=== PATIENT | female | born 1960 | race Caucasian/White ===

== ENCOUNTER 2020-01-29 05:38 | Emergency (ER) | payer MEDICARE, MEDICAID ==
[~2020-01-29] VITALS: Ht 154.9 cm; Wt 80.2 kg
--- NOTE | 2020-01-29 05:54 | PHYS DOC ---
Past History Past Medical History: Anxiety, Bipolar, Depression Past Medical History Parkinson's disorder (SATNAM FRANCO MD) Smoking: Cigarettes (SATNAM FRANCO MD) General Adult HPI: HPI: "..No one loves me... No one will take care of me... I having bad anxiety..My .. he tired kill me.. He said I was a fucking heart less bitch..my family hates... they want to kill me.. the Police... stopped me... they want to arrest... me.. No give a fucking shit about me... Fucking..every one is out to get me.. to kill me.. " I fucking scared...." " I need some help...". " Those fucking police..."... " God help me..".. " God hates me...".. " I need help..." " I need my house in order..." " I ... can't live ...like this..." " My family ..." going to kill me.. " Madhu.." " I can;' t take care of myself.. " I killed my .... " No body will help me..." ".. I was driving crazy...but I am not crazy.. "...'" Fucking police..." Patient is a 59 year old female who presents with above complaints multiple emotional complaints. Pt. reportedly stopped by police for erratic driving. Pt. very agitated and yelling. Police referred the pt. to ED for medical / psych. eval. patient is very poor historian. Patient reportedly has history of Parkinson's disorder, chronic pain, DVTs, and tobacco use. Patient currently denies illicit drug use. (SATNAM FRANCO MD) Review of Systems: Review of Systems: Constitutional: Denies fever or chills Eyes: Denies change in visual acuity HENT: Denies nasal congestion or sore throat Respiratory: Denies cough or shortness of breath Cardiovascular: Denies chest pain or edema GI: Denies abdominal pain, nausea, vomiting, bloody stools or diarrhea : Denies dysuria Musculoskeletal: Denies back pain or joint pain Integument: Denies rash Neurologic: Denies headache, focal weakness or sensory changes Endocrine: Denies polyuria or polydipsia Lymphatic: Denies swollen glands Psychiatric: Complaints of depression and anxiety (SATNAM FRANCO MD) Heart Score: HEART Score for Chest Pain: HEART Score for Chest Pain Response (Comments) Value History Slighlty/Non-Suspicious 0 ECG Normal 0 Age >45 - < 65 1 Risk Factors 1 or 2 Risk Factors 1 Troponin < Normal Limit 0 Total 2 Risk Factors: Risk Factors: DM, Current or recent (<one month) smoker, HTN, HLP, family hist ory of CAD, obesity. Risk Scores: Score 0 - 3: 2.5% MACE over next 6 weeks - Discharge Home Score 4 - 6: 20.3% MACE over next 6 weeks - Admit for Clinical Observation Score 7 - 10: 72.7% MACE over next 6 weeks - Early Invasive Strategies (SATNAM FRANCO MD) Family History: Family History: Not currently available in her agitated state (SATNAM FRANCO MD) Current Medications: Current Meds: See Nursing for home meds (STANAM FRANCO MD) Allergies: Allergies: Unable to determine at this time. (SATNAM FRANCO MD) Physical Exam: PE: Constitutional: in acute emotional distress, [] HENT: Normocephalic, atraumatic, bilateral external ears normal, oropharynx moist, no oral exudates, nose normal. [] Eyes: PERRLA, EOMI, conjunctiva normal, no discharge. [] Neck: Normal range of motion, no tenderness, supple, no stridor. [] Cardiovascular:Heart rate regular rhythm, no murmur [] Lungs & Thorax: Bilateral breath sounds equal at apexes, with scattered wheezes on auscultation [] Abdomen: Bowel sounds normal, soft, no tenderness, no masses, no pulsatile masses. [] Skin: Warm, dry, no erythema, no rash. [] Back: No tenderness, no CVA tenderness. [] Extremities: No tenderness, no cyanosis, no clubbing, ROM intact, no edema. No cording appreciated Neurologic: Alert and oriented to name, moves all ext. on request, has distal sensory, Psychologic: Affect agitated,, judgement appears impaired, mood depressed. (SATNAM FRANCO MD) EKG: EKG: My interpretation EKG shows a sinus rhythm at 85 bpm. No findings of acute morp hology. There is some wavering baseline [] (SATNAM FRANCO MD) Radiology/Procedures: Radiology/Procedures: [] IMAGING REPORT Signed PATIENT: LINNEA DOWNS ACCOUNT: [id number] : 1960 LOCATION: ER AGE: 59 SEX: F EXAM STATUS: REG ER ORD. PHYSICIAN: SATNAM FRANCO MD REASON: dyspnea PROCEDURE: PORTABLE CHEST 1V EXAM: CHEST ONE VIEW. HISTORY: Dyspnea. COMPARISON: None. FINDINGS: A frontal view of the chest is obtained. The inspiration is small with bibasilar atelectasis. There is no pneumothorax or pleural effusion. The heart is not enlarged. IMPRESSION: 1. Small inspiration with bibasilar atelectasis. Electronically signed by: Adry Munson MD (01/29/2020 6:26 AM) [facility] DICTATED AND SIGNED BY: GIUSEPPE MUNSON MD DATE: 01/29/20625 CC: TERESA ESCAMILLA DO; SATNAM FRANCO MD; MACIE CHRISTIAN I DO ~ (SATNAM FRANCO MD) Course & Med Decision Making: Course & Med Decision Making Pertinent Labs and Imaging studies reviewed. (See chart for details) Labs pending at shift change. Endorsed patient to Dr. Escamilla to make disposition. Impression: 1. Mental Status Change 2. Anxiety Disorder 3. Hx Bipolar 4. Acute Psychosis with Paranoid Delusions and Disorientation 5. Hx. of Parkinson Dz See Psych report Ashly Torres [facility] Pt. still awaiting placement involuntary- a 1800 hr.s 01/29/2020 Pt. still awaiting placement involuntary- at shift change 01/30/2020 Pt sleeping since 2000 Hrs. Pt. awaken at 0036. Request to take Parkinson medication. 01-31-2020 Pt. still awaiting placement. [facility] will take pt. at 1000 hrs. tomorrow 02-02-20 Pt. asking for a pain med for her chronic Fibromyalgia pain. 183. Negative COVID. Pt. chart reviewed. No documentation that pt. has become voluntary. [facility] states they will take her as voluntary or in voluntary. Pt. becoming more agitated, complaints of rushing thoughts, insomnia, ..2300. Will repeat dose of Haldol 5 mg and 50 mg Benadryl. 01/31/2020 Pt. Asleep 0300 hrs. Pt. Asleep at 0600 hrs. 02/01/2020- Plan transfer to [facility] at [address] Check out to Dr. Carrera . (SATNAM FRANCO MD) Course & Med Decision Making [facility] in [place] sent out a mental health personal property assessor, who recommended that patient will need inpatient admission. She stated that patient will have a bed at her hospital tomorrow by 10 am. Care of patient was endorsed back to Dr. Yosi Horn at shift change, pending placement. (RAQUEL WORLEY DO) Dragon Disclaimer: Dragon Disclaimer: This electronic medical record was generated, in whole or in part, using a voice recognition dictation system. (SATNAM FRANCO MD) Departure Departure: Disposition: 65 XFER TO PSYCH HOSP/UNIT (awaiting) Condition: STABLE Referrals: MACIE CHRISTIAN DO (PCP) Dragon Disclaimer This chart was dictated in whole or in part using Voice Recognition software in a busy, high-work load, and often noisy Emergency Department environment. It may contain unintended and wholly unrecognized errors or omissions. (SATNAM FRANCO MD) SATNAM FRANCO MD January 29, 2020 05:54 RAQUEL WORLEY DO Jan 31, 2020 17:32
[2020-01-29] MEDS ORDERED: IV RINGERS SOLUTION,LACTATED 1,000 ML IV SCH (06:00)
--- NOTE | 2020-01-29 06:18 | EKG ---
[address] [address] Test Date: 2020-01-29 Test Time: 06:09:26 Pat Name: LINNEA DOWNS Department: Room: Gender: F Patient Insurance Clerk: : 1960 Requested By: SATNAM FRANCO Order Number: [id number] Reading MD: Caden Wharton MD Measurements Intervals Oden Rate: 85 P: 37 [place]: 170 QRS: 9 QRSD: 84 T: 28 QT: 350 QTc: 417 Interpretive Statements SINUS RHYTHM Electronically Signed On 01-31-2020 12:21:04 CDT by Caden Wharton MD
[2020-01-29 06:20] LABS: BARBITURATES NEG (NEG); BENZODIAZEPINES NEG (NEG); CALCIUM 8.9 mg/dL (8.5-10.1); CANNABINOIDS NEG (NEG); COCAINE NEG (NEG); CREATININE 0.6 mg/dL (0.6-1.0); GFR 102.3; METHADONE NEG (NEG); OPIATES NEG (NEG); PHENCYCLIDINE NEG (NEG)
[2020-01-29 06:22] LABS: AMPHETAMINE/METHAMPHETAMINE NEG (NEG)
[2020-01-29 06:23] LABS: BACTERIA,URINE FEW /HPF (0-FEW); BASO # 0.1 x10^3/uL (0.0-0.2); BASO % 1 % (0-3); BILIRUBIN,URINE NEG (NEG); CLARITY,URINE CLEAR; COLOR,URINE STRAW; EOS # 0.1 x10^3/uL (0.0-0.7); EOS % 1 % (0-3); GLUCOSE,URINE NEG (NEG); HEMATOCRIT 43.6 % (36.0-47.0); HEMOGLOBIN 14.3 g/dL (12.0-15.5); LYMPH # 1.5 x10^3/uL (1.0-4.8); LYMPH % 19 % (24-48); MEAN CORPUSCULAR HEMOGLOBIN 28 pg (25-35); MEAN CORPUSCULAR HGB CONC 33 g/dL (31-37); MEAN CORPUSCULAR VOLUME 85 fL (79-100); MONO # 0.6 x10^3/uL (0.0-1.1); MONO % 8 % (0-9); NEUT # 5.5 x10^3uL (1.8-7.7); NEUT % 71 % (31-73); NITRITE,URINE NEG (NEG); PLATELET COUNT 254 x10^3/uL (140-400); RBC,URINE OCC /HPF (0-2); RED BLOOD COUNT 5.12 x10^6/uL (3.50-5.40); RED CELL DISTRIBUTION WIDTH 14.2 % (11.5-14.5); UROBILINOGEN,URINE 0.2 mg/dL (0.2 mg/dL); WBC,URINE OCC /HPF (0-4); WHITE BLOOD COUNT 7.8 x10^3/uL (4.0-11.0)
[2020-01-29 06:24] LABS: SQUAMOUS EPITHELIAL CELL,UR FEW /LPF
--- NOTE | 2020-01-29 06:29 | RAD ---
EXAM: CHEST ONE VIEW. HISTORY: Dyspnea. COMPARISON: None. FINDINGS: A frontal view of the chest is obtained. The inspiration is small with bibasilar atelectasis. There is no pneumothorax or pleural effusion. The heart is not enlarged. IMPRESSION: 1. Small inspiration with bibasilar atelectasis. Electronically signed by: Adry Munson MD (01/29/2020 6:26 AM) [facility]
[2020-01-29] MEDS ORDERED: HALOPERIDOL LACT 5 MG/ML VIAL. IVP ONE (06:30)
[2020-01-29 06:33] LABS: ALBUMIN 3.7 g/dL (3.4-5.0); DIRECT BILIRUBIN 0.1 mg/dL (0.0-0.2); TOTAL BILIRUBIN 0.6 mg/dL (0.2-1.0); TOTAL PROTEIN 7.3 g/dL (6.4-8.2)
[2020-01-29] MEDS ORDERED: HALOPERIDOL LACT 5 MG/ML VIAL. IVP PRN (11:15)
[2020-01-29] MEDS: CARBIDOPA/LEVODOPA 25/100MG TABLET PO SCH ×3 (12:00→23:50)
[2020-01-30] MEDS: CARBIDOPA/LEVODOPA 25/100MG TABLET PO SCH ×4 (01:49→22:05)
[2020-01-31] MEDS: CARBIDOPA/LEVODOPA 25/100MG TABLET PO SCH ×6 (00:33→17:49)
[2020-01-31] MEDS ORDERED: IBUPROFEN 600 MG TABLET. PO ONE (08:30)
[2020-01-31] MEDS ORDERED: HYDROcodon/IBUPROFEN 7.5/200MG 1 TAB TABLET PO ONE (18:00)
[2020-01-31] MEDS ORDERED: LORazepam 1 MG TABLET PO ONE (18:00)
[2020-01-31] MEDS ORDERED: HALOPERIDOL 1 MG TABLET PO ONE (23:15)
[2020-01-31] MEDS ORDERED: diphenhydrAMINE HCL 25 MG CAPSULE PO ONE (23:15)
[2020-02-01] MEDS: CARBIDOPA/LEVODOPA 25/100MG TABLET PO SCH (08:44)
[2020-02-01 08:45] VITALS: BP 135/76
== END 2020-02-01 09:32 ==
LOC: ER 05:38
DX: R41.82 Altered mental status, unspecified (principal); F41.9 Anxiety disorder, unspecified; F31.9 Bipolar disorder, unspecified; Z03.818 Encounter for observation for suspected exposure to other biological agents ruled out; F22 Delusional disorders; G20 Parkinson's disease; G89.29 Other chronic pain; F17.210 Nicotine dependence, cigarettes, uncomplicated; Z86.718 Personal history of other venous thrombosis and embolism
CPT/HCPCS: 36415; 71045; 80048; 80076; 80307; 81001; 82550; 83690; 83735; 83880; 84443; 84484; 85025; 85379; 85610; 85730; 93005; 96361; 96374; 96375; 96376; 99285; C9803; G0480; J1630; J2060; J7120; Q0163; U0003

== ENCOUNTER 2021-05-11 11:37 | Emergency (ER) | payer MEDICARE, MEDICAID ==
[~2021-05-11] VITALS: Ht 152.4 cm; Wt 80.1 kg
[2021-05-11 11:55] VITALS: BP 154/82
--- NOTE | 2021-05-11 12:51 | PHYS DOC ---
Past History Past Medical History: Anxiety, Bipolar, Depression Additional Past Medical Histor: PARKINSONS Past Surgical History: Tonsillectomy, Tubal ligation, Other Additional Past Surgical Histo: KIDNEY STENTS Smoking: Cigarettes Alcohol Use: None General Adult EDM: Chief Complaint: TREMORS HPI: HPI: Patient is a 61-year-old female coming in from her primary care provider's office for tremors. ED received report from primary care that she has a history of Parkinson's but her tremors have been getting worse over the past few days and he is concerned that she might need something like diazepam. Patient follows with Dr. Ramires monthly for her Parkinson's disease. Patient states that she had gone to her primary care provider today due to concerns for an STI after intercourse and now complaining of dysuria. Patient states that at the time she was seeing her PCP she was just about due for her next Sinemet and took it 15 minutes prior to our evaluation. Patient states her symptoms are much better now and that her medicine is starting to kick in. Patient states that she has not had any changes in her dosage but was wanting to see her neurologist because she says it seems like the doses are wearing off too much before its time for the next dose. Denies any other complaints. Otherwise has been well. Review of Systems: Review of Systems: All other systems within normal limits except for as noted in the HPI Allergies: Allergies: Allergies Coded Allergies Type Severity Reaction Last Updated Verified No Known Drug Allergies 01/30/20 No Physical Exam: PE: Constitutional: Well developed, well nourished, no acute distress, non-toxic appearance. [] HENT: Normocephalic, atraumatic, bilateral external ears normal, nose normal. [] Eyes: PERRLA, conjunctiva normal, no discharge. [] Neck: No rigidity, supple, no stridor. [] Cardiovascular: Regular rate and rhythm, brisk cap refill [] Lungs & Thorax: Non labored symmetric respirations, no tachypnea or respiratory distress [] Abdomen: Soft, nondistended. Skin: Warm, dry, no erythema, no rash. [] Back: Unremarkable Extremities: No deformities, range of motion grossly intact, no lower extremity edema [] Neurologic: Alert and oriented X 3, no focal deficits noted. Abnormal muscle movements, slight tremors [] Psychologic: Affect normal, judgement normal, mood normal. [] Current Patient Data: Labs: RUN DATE: 05/11/21 [facility] LAB *LIVE* PAGE 1 RUN TIME: 1321 Specimen Inquiry PATIENT: LINNEA DOWNS ACCT: [id number] LOC: ER U: [id number] AGE/SX: 61/F ROOM: RE05/11/[address]: ELOINA MARINO MD : 1960 BED: DIS: STATUS: REG ER TLOC: SPEC #: [id number] NABEEL: 05/11/21 STATUS: COMP REQ #: [id number] RECD: 05/11/[address]: ELOINA MARINO MD SOURCE: VAGINAL ENTR: 05/11/21-[address] [facility] [address]: LAURA MUÑOZ MD SPDC: ORDERED: WET PREP COMMENTS: Has specimen been collected/obtained? Y Procedure Result WET PREP Final YEAST NONE SEEN TRICHOMONAS NONE SEEN CLUE CELLS NONE SEEN ALTERED CHICHO ALTERED CHICHO PRESENT SUGGESTIVE OF BACTERIAL VAGINOSIS WBCS FEW SQUAMOUS EPS MODERATE END OF REPORT Vital Signs: Vital Signs Date Time Temp Pulse Resp B/P (MAP) Pulse Ox O2 Delivery O2 Flow Rate FiO2 05/11/21 11:55 98.4 71 20 154/82 (106) 96 Room Air EKG: EKG: [] Radiology/Procedures: Radiology/Procedures: [] Heart Score: C/O Chest Pain: No HEART Score for Chest Pain: HEART Score for Chest Pain Response (Comments) Value History Slighlty/Non-Suspicious 0 ECG Normal 0 Age >45 - < 65 1 Risk Factors 1 or 2 Risk Factors 1 Troponin < Normal Limit 0 Total 2 Risk Factors: Risk Factors: DM, Current or recent (<one month) smoker, HTN, HLP, family history of CAD, obesity. Risk Scores: Score 0 - 3: 2.5% MACE over next 6 weeks - Discharge Home Score 4 - 6: 20.3% MACE over next 6 weeks - Admit for Clinical Observation Score 7 - 10: 72.7% MACE over next 6 weeks - Early Invasive Strategies Course & Med Decision Making: Course & Med Decision Making Pertinent Labs and Imaging studies reviewed. (See chart for details) [] Danny Disclaimer: Danny Disclaimer: This electronic medical record was generated, in whole or in part, using a voice recognition dictation system. Departure Departure: Impression: Primary Impression: Parkinsonian tremor Additional Impression: Bacterial vaginosis Disposition: HOME / SELF CARE / HOMELESS Condition: STABLE Referrals: LAURA MUÑOZ MD (PCP) Patient Instructions: Bacterial Vaginosis Scripts Metronidazole (METRONIDAZOLE) 500 Mg Tablet 1 TAB PO BID for antibiotic for 7 Days, #14 TAB 0 Refills Prov: ELOINA MARINO MD 05/11/21 Diazepam (VALIUM) 2 Mg Tablet 2 MG PO TID PRN for TREMORS for 5 Days, #15 TAB Prov: ELOINA MARINO MD 05/11/21 ELOINA MARINO MD May 11, 2021 12:51
[2021-05-11] MEDS ORDERED: diazePAM 2 MG TABLET. PO ONE (13:00)
[2021-05-11 13:11] LABS: BASO # 0.1 x10^3/uL (0.0-0.2); BASO % 1 % (0-3); EOS # 0.1 x10^3/uL (0.0-0.7); EOS % 1 % (0-3); HEMATOCRIT 45.1 % (36.0-47.0); HEMOGLOBIN 14.8 g/dL (12.0-15.5); LYMPH # 1.4 x10^3/uL (1.0-4.8); LYMPH % 20 % (24-48); MEAN CORPUSCULAR HEMOGLOBIN 28 pg (25-35); MEAN CORPUSCULAR HGB CONC 33 g/dL (31-37); MEAN CORPUSCULAR VOLUME 87 fL (79-100); MONO # 0.5 x10^3/uL (0.0-1.1); MONO % 7 % (0-9); NEUT # 5.1 x10^3uL (1.8-7.7); NEUT % 71 % (31-73); PLATELET COUNT 262 x10^3/uL (140-400); RED BLOOD COUNT 5.21 x10^6/uL (3.50-5.40); RED CELL DISTRIBUTION WIDTH 13.7 % (11.5-14.5); WHITE BLOOD COUNT 7.2 x10^3/uL (4.0-11.0)
[2021-05-11 13:18] LABS: CALCIUM 9.3 mg/dL (8.5-10.1); CREATININE 0.6 mg/dL (0.6-1.0); GFR 101.6; POTASSIUM 3.8 mmol/L (3.5-5.1)
[2021-05-11 13:24] LABS: ALBUMIN 3.7 g/dL (3.4-5.0); ALBUMIN/GLOBULIN RATIO 1.1 (1.0-1.7); MAGNESIUM 2.2 mg/dL (1.8-2.4); PHOSPHORUS 3.3 mg/dL (2.6-4.7); TOTAL BILIRUBIN 0.4 mg/dL (0.2-1.0); TOTAL PROTEIN 7.1 g/dL (6.4-8.2)
[2021-05-11 13:25] LABS: BILIRUBIN,URINE NEG (NEG); CLARITY,URINE CLEAR; COLOR,URINE YELLOW; GLUCOSE,URINE NEG (NEG); NITRITE,URINE NEG (NEG); UROBILINOGEN,URINE 0.2 mg/dL (0.2 mg/dL)
[2021-05-11 13:27] LABS: BACTERIA,URINE FEW /HPF (0-FEW); RBC,URINE 0 /HPF (0-2); SQUAMOUS EPITHELIAL CELL,UR FEW /LPF
[2021-05-11] MEDS ORDERED: METR-34 PO (14:22)
[2021-05-11] MEDS ORDERED: DIAZ2TAB PO (14:22)
== END 2021-05-11 14:43 | disposition home or self-care (01) ==
LOC: ER 11:37
DX: G20 Parkinson's disease (principal); N76.0 Acute vaginitis; B96.89 Other specified bacterial agents as the cause of diseases classified elsewhere; F41.9 Anxiety disorder, unspecified; F31.9 Bipolar disorder, unspecified; F17.210 Nicotine dependence, cigarettes, uncomplicated
CPT/HCPCS: 80053; 81001; 83735; 84100; 85025; 87491; 87591; 99283; Q0111

== ENCOUNTER 2021-11-14 10:01 | Emergency (ER) | payer MEDICAID, MEDICARE ==
[~2021-11-14] VITALS: Ht 152.4 cm; Wt 84.8 kg
[~2021-11-14 10:01] MED LIST: DIAZ2TAB PO; METR-34 PO
[2021-11-14] MEDS ORDERED: CARBIDOPA/LEVODOPA 25/100MG TABLET PO ONE (10:15)
[2021-11-14 10:30] VITALS: BP 115/50
--- NOTE | 2021-11-14 10:30 | PHYS DOC ---
Past History Past Medical History: Anxiety, Bipolar, Depression Additional Past Medical Histor: PARKINSONS Past Surgical History: Tonsillectomy, Tubal ligation, Other Additional Past Surgical Histo: KIDNEY STENTS Smoking: Cigarettes Alcohol Use: None General Adult EDM: Chief Complaint: MEDICATION REFILL HPI: HPI: Patient is a 61-year-old female who presents to the emergency department via EMS for medication refill. Patient reports that she takes carbidopa/levodopa 25-100 mg. She is supposed to take 5 tablets a day and states that she has been having to take more than what is ordered because she does not have relief in her tremors unless she takes more medication than prescribed. She reports because she has been taking more than prescribed, she is ran out earlier. Patient was given a 3-month supply on August 21, 2021 and she reports that she "ran out a long time ago". Patient reports that Dr. Apodaca is the physician that prescribes this medication for her and her primary care provider is Dr. Demarco Solitario. Patient also states that sometimes Valium helps with her tremors. Patient reports that she lives at home with her family and her son, daughter and grandchildren take care of her. She reports that when she got out of a place called [facility] in March of last year she was supposed to be set up with home health but has not had home health set up yet. Patient is very demanding and resistant to answering questions. She is cursing at ER staff. Review of Systems: Review of Systems: Review of systems is limited to patient's cooperation with questioning Current Medications: Current Meds: Current Medications Medications (Trade) Dose Ordered Sig/Lory Start Time Stop Time Status Last Admin Dose Admin Carbidopa/Levodopa (Sinemet 25/100) 1 tab 1X ONCE 11/14/21 10:15 11/14/21 10:19 DC Lorazepam (Ativan Inj) 0.5 mg 1X ONCE 11/14/21 10:15 11/14/21 10:19 DC Allergies: Allergies: Allergies Coded Allergies Type Severity Reaction Last Updated Verified No Known Drug Allergies 01/30/20 No Physical Exam: PE: Constitutional: Well developed, well nourished, no acute distress, non-toxic appearance. [] HENT: Normocephalic, atraumatic, bilateral external ears normal, oropharynx mo ist, no oral exudates, nose normal. [] Eyes: PERRL, EOMI, conjunctiva normal, no discharge. [] Neck: Normal range of motion, no stridor Cardiovascular:Heart rate regular rhythm, no murmur [] Lungs & Thorax: Bilateral breath sounds clear to auscultation [] Abdomen: Bowel sounds normal, soft, no tenderness, obese, no masses, no pulsatile masses. [] Skin: Warm, dry, no erythema, no rash. [] Back: Normal range of motion Extremities: No tenderness, no cyanosis, no clubbing, ROM intact, no edema. [] Neurologic: Alert and oriented X 3, normal motor function, normal sensory f unction, no focal deficits noted, bilateral upper extremity tremors. [] Psychologic: Affect normal, judgement normal, mood normal. [] Current Patient Data: Labs: Laboratory Tests Test 11/14/21 10:22 White Blood Count 8.0 x10^3/uL Red Blood Count 5.29 x10^6/uL Hemoglobin 14.8 g/dL Hematocrit 45.5 % Mean Corpuscular Volume 86 fL Mean Corpuscular Hemoglobin 28 pg Mean Corpuscular Hemoglobin Concent 33 g/dL Red Cell Distribution Width 13.0 % Platelet Count 271 x10^3/uL Neutrophils (%) (Auto) 77 % Lymphocytes (%) (Auto) 13 % Monocytes (%) (Auto) 8 % Eosinophils (%) (Auto) 1 % Basophils (%) (Auto) 2 % Neutrophils # (Auto) 6.1 x10^3uL Lymphocytes # (Auto) 1.0 x10^3/uL Monocytes # (Auto) 0.6 x10^3/uL Eosinophils # (Auto) 0.1 x10^3/uL Basophils # (Auto) 0.1 x10^3/uL Sodium Level 141 mmol/L Potassium Level 4.4 mmol/L Chloride Level 106 mmol/L Carbon Dioxide Level 28 mmol/L Anion Gap 7 Blood Urea Nitrogen 13 mg/dL Creatinine 0.7 mg/dL Estimated GFR (Cockcroft-Gault) 85.1 BUN/Creatinine Ratio 19 Glucose Level 110 mg/dL Calcium Level 8.9 mg/dL Total Bilirubin 0.6 mg/dL Aspartate Amino Transf (AST/SGOT) 33 U/L Alanine Aminotransferase (ALT/SGPT) 10 U/L Alkaline Phosphatase 80 U/L Total Protein 7.1 g/dL Albumin 3.5 g/dL Albumin/Globulin Ratio 1.0 Current Medications Medications (Trade) Dose Ordered Sig/Lory Route PRN Reason Start Time Stop Time Status Last Admin Dose Admin Carbidopa/Levodopa (Sinemet 25/100) 1 tab 1X ONCE PO 11/14/21 10:15 11/14/21 10:19 DC 11/14/21 10:41 Lorazepam (Ativan Inj) 0.5 mg 1X ONCE IVP 11/14/21 10:15 11/14/21 10:19 DC 11/14/21 10:23 EKG: EKG: [] Radiology/Procedures: Radiology/Procedures: [] Heart Score: C/O Chest Pain: N/A Risk Factors: Risk Factors: DM, Current or recent (<one month) smoker, HTN, HLP, family history of CAD, obesity. Risk Scores: Score 0 - 3: 2.5% MACE over next 6 weeks - Discharge Home Score 4 - 6: 20.3% MACE over next 6 weeks - Admit for Clinical Observation Score 7 - 10: 72.7% MACE over next 6 weeks - Early Invasive Strategies Course & Med Decision Making: Course & Med Decision Making Pertinent Labs and Imaging studies reviewed. (See chart for details) [] Patient presents to the emergency department today for medication refill. Patient reports that she has been having to take more than prescribed of her carbidopa levodopa medication because the dose that she is given does not help with her tremors. Work-up in the ER consisted of CBC, CMP. Patient was given her dose of carbidopa/levodopa in the emergency department. She reports that when her tremors get bad a dose of Valium helps with the symptoms, there is a shortage of Valium and patient was given lorazepam. Supervising physician involved in evaluation. Patient's lab work was unremarkable. Patient's tremors have improved greatly after Valium. I discussed patient's case with Dr. Apodaca who is her normal neurologist that manages her medications. He reports that he saw her in his office 1 month ago. He advised me to give patient an additional tablet a day and have her follow-up in his office within 1 week. I advised patient of the risks of increasing this medication and the symptoms of dyskinesia that she may experience. I discussed patient's case and findings with her. I offered her admission for custodial placement but she reports that she would like to go home. Vital signs are stable. I discussed with patient all findings and diagnostic testing as well as the need to follow-up with PCP for further evaluation and treatment or return to the ER if any new or worsening symptoms. Strict return precautions were also discussed at length. Patient voiced understanding and agreement with the plan. Patient is hemodynamically stable at the time of disposition. Dragon Disclaimer: Dragon Disclaimer: This electronic medical record was generated, in whole or in part, using a voice recognition dictation system. Departure Departure: Impression: Primary Impression: Encounter for medication adjustment Disposition: HOME / SELF CARE / HOMELESS Condition: GOOD Referrals: DEMARCO SOLITARIO MD (PCP) GABRIELLA APODACA MD Patient Instructions: Parkinson's Disease Additional Instructions: You are seen in the emergency department for medication management. Your blood work was unremarkable. We are going to increase your dose of carbidopa/levodopa. Please use this as directed. Do not take any more than what is prescribed for you. Taking too much of this medication can cause dyskinesia symptoms which are repetitive involuntary movements like blinking, abnormal movements of the jaw/lip/tongue and facial grimacing. I spoke with Dr. Apodaca who would like to see you in his office within a week. Please call his office at discharge to set up a follow-up appointment. Return to the emergency department if you develop any worsening of your tremors, falls, chest pain, shortness of breath, dizziness. Scripts Carbidopa/Levodopa (CARBIDOPA-LEVODOPA 25-100 TAB) 1 Each Tablet 2 EACH PO TID for parkinsons for 7 Days, #42 TAB 0 Refills Prov: ISABEL RANGEL APRN 11/14/21 ISABEL RANGEL APRN Nov 14, 2021 10:30
[2021-11-14 10:39] LABS: BASO # 0.1 x10^3/uL (0.0-0.2); BASO % 2 % (0-3); EOS # 0.1 x10^3/uL (0.0-0.7); EOS % 1 % (0-3); HEMATOCRIT 45.5 % (36.0-47.0); HEMOGLOBIN 14.8 g/dL (12.0-15.5); LYMPH % 13 % (24-48); MEAN CORPUSCULAR HEMOGLOBIN 28 pg (25-35); MEAN CORPUSCULAR HGB CONC 33 g/dL (31-37); MEAN CORPUSCULAR VOLUME 86 fL (79-100); MONO # 0.6 x10^3/uL (0.0-1.1); MONO % 8 % (0-9); NEUT # 6.1 x10^3uL (1.8-7.7); NEUT % 77 % (31-73); PLATELET COUNT 271 x10^3/uL (140-400); RED BLOOD COUNT 5.29 x10^6/uL (3.50-5.40)
[2021-11-14 10:44] LABS: CALCIUM 8.9 mg/dL (8.5-10.1); CREATININE 0.7 mg/dL (0.6-1.0); GFR 85.1; POTASSIUM 4.4 mmol/L (3.5-5.1)
[2021-11-14 10:50] LABS: ALBUMIN 3.5 g/dL (3.4-5.0); TOTAL BILIRUBIN 0.6 mg/dL (0.2-1.0); TOTAL PROTEIN 7.1 g/dL (6.4-8.2)
[2021-11-14] MEDS ORDERED: CARB1TAB22 PO (11:34)
== END 2021-11-14 13:58 | disposition home or self-care (01) ==
LOC: ER 10:01
DX: Z76.0 Encounter for issue of repeat prescription (principal); R25.1 Tremor, unspecified; F41.9 Anxiety disorder, unspecified; F31.9 Bipolar disorder, unspecified; F17.210 Nicotine dependence, cigarettes, uncomplicated
CPT/HCPCS: 36415; 80053; 85025; 96374; 99283; J2060

== ENCOUNTER 2021-11-15 14:30 | Emergency (ER) | payer OTHER, MEDICAID ==
[~2021-11-15] VITALS: Ht 172.7 cm; Wt 83.1 kg
[~2021-11-15 14:30] MED LIST changes: +CARB1TAB22 PO
--- NOTE | 2021-11-15 15:01 | PHYS DOC ---
Past History Past Medical History: Anxiety, Bipolar, Depression Additional Past Medical Histor: PARKINSONS (ANDRÉS FLORENTINO) Past Surgical History: Tonsillectomy, Tubal ligation Additional Past Surgical Histo: KIDNEY STENTS (ANDRÉS FLORENTINO) Smoking: Cigarettes Alcohol Use: None (ANDRÉS FLORENTINO) General Adult EDM: Chief Complaint: TREMORS HPI: HPI: Patient is a 61 year old female with past medical history including Parkinson's, anxiety, depression, bipolar disorder who was seen in the emergency department yesterday presents with continued complaints of tremor. When she was seen in the department yesterday, she told the provider that she is out of her Sinemet, however she presents today with a full bottle. She saw Dr. Apodaca, her neurologist, today, who informed her that he would not prescribe her any more medication. She was prescribed 42 tablets of Sinemet by the provider who saw her here in the emergency department yesterday. The pharmacy refused to fill her prescription when she presented today, prompting her to call EMS. She wants medication for her tremors to stop. Patient would not answer any other questions. (ANDRÉS FLORENTINO) Review of Systems: Review of Systems: Patient is uncooperative and will not answer questions regarding review of systems. (ANDRÉS FLORENTINO) Allergies: Allergies: Allergies Coded Allergies Type Severity Reaction Last Updated Verified No Known Drug Allergies 11/15/21 No (ANDRÉS FLORENTINO) Physical Exam: PE: Constitutional: Well developed, well nourished, no acute distress, non-toxic appearance. HENT: Normocephalic, atraumatic, bilateral external ears normal, nose normal. Eyes: EOMI, conjunctiva normal, no discharge. Neck: Normal range of motion, no stridor. Skin: Warm, dry, no erythema, no rash. Extremities: Resting tremor right greater than left, no tenderness, no cyanosis, no clubbing, ROM intact, no edema. Neurologic: Alert and oriented x4, no focal deficits noted. (ANDRÉS FLORENTINO) Current Patient Data: Vital Signs: Vital Signs Date Time Temp Pulse Resp B/P (MAP) Pulse Ox O2 Delivery O2 Flow Rate FiO2 11/15/21 14:50 98.2 94 20 134/91 (105) 98 (ANDRÉS FLORENTINO) Heart Score: C/O Chest Pain: No (ANDRÉS FLORENTINO) C/O Chest Pain: N/A (ELOINA MARINO MD) Course & Med Decision Making: Course & Med Decision Making Pertinent Labs and Imaging studies reviewed. (See chart for details) Patient is a 61-year-old female with past medical history of Parkinson's, anxiety, depression, bipolar disorder. She presents today after evaluation yesterday for similar complaints. Patient states that she has been having body tremors consistent with her Parkinson's disease diagnosis. Yesterday, she told the provider that she was out of her carbidopa/levodopa. However, she presents today with a full bottle of the same medication. She called 911 after the pharmacy refused to refill the prescription she received yesterday from the provider here in the emergency department. She had a telehealth visit with Dr. Apodaca today, where he refused to prescribe her any more medication, as he did not feel she needs it. I spoke to Dr. Apodaca regarding patient case. He did strongly advise against prescribing any more medications to the patient. He states that her tremors are related to her Parkinson's diagnosis and that he has followed her case closely. When I attempted to speak to the patient regarding discharge instructions and return precautions, she said to me, "well send me to the psych unit. If you send me home, I am going to kill myself." She then continued, "I'll overdose on my hypertension meds or I'll just swallow liquid Drano." Oskar with PAT was paged. After evaluation from psychiatric assessment team, patient continued to express thoughts of suicidal ideation and stated that were she to be released to her home, she would act on them. Labs drawn and Covid swabs obtained in preparation for psychiatric facility placement. Her placement is complicated by her Parkinson's diagnosis and fall risk. At this time, there will not be any edda- psych beds available here at [facility] nor does [facility] have availability tomorrow. For now, Oskar is working on placement elsewhere for her. She was provided with p.o. Ativan in attempt to ease her anxiety. She was disappointed it was not given through an IV. Patient requested pain medication. P.o. ibuprofen was provided. Shortly after, patient is resting comfortably asleep. Upon waking, patient states that she is currently supposed to be taking Flagyl for a bacterial infection, but she is unsure what. P.o. tablet provided in dep artment today. Patient care was transferred to Dr. Crowley upon my leaving the department. Patient still is waiting for placement. (ANDRÉS FLORENTINO) Course & Med Decision Making Awaiting- PCR for COVID. Pt. request anxiety meds and or sleep meds. - Pt. given 2 mg Ativan. See PAT note. Still awaiting COVID PCR at [address] Marino at shift change. Impression: 1. Anxiety Disorder 2. Suicidal Ideation 3. Hx. Bipolar Disorder. (SATNAM CROWLEY MD) Course & Med Decision Making Accepted patient care shift change, pending placement. Have a difficult time finding placement. Patient is having some behavioral issues, such as saying she is paralyzed and cannot move but did can get up and walk down the morales. Care transitioned at shift change. (ELOINA MARINO MD) Course & Med Decision Making Did not see or evaluate patient. Did not discuss patient with PA. Generally agree with PAs work-up and disposition per note (SHELTON ALAN MD) Course & Med Decision Making Patient has continued to exhibit hostile behavior. As of this morning, patient states she still has thoughts of suicide, but denies any desire to act on these thoughts. Upon being informed patient is likely to be discharged to home, she now has new threats of suicide and other self harm. Patient seems to be using threats of suicide to manipulate providers and other health care resources. PAT paged for reevaluation. Safety plan in place with multiple family members present, including two sons-in-law and daughter. They have agreed to work out a rotating schedule to stay with the patient. Additionally, patient's sister and [id number] plan to visit within the month to take her to live with them, where she can receive / care and attention. Family all understand and are agreeable to discharge plan. (LOUIS SHELTON MD) Lelaon Disclaimer: Danny Disclaimer: This electronic medical record was generated, in whole or in part, using a voice recognition dictation system. (ANDRÉS FLORENTINO) Departure Departure: Impression: Primary Impression: Suicidal ideation Additional Impressions: Encounter for medication adjustment Hostile behavior Disposition: HOME / SELF CARE / HOMELESS Condition: STABLE Referrals: LAURA SOLITARIO MD (PCP) GABRIELLA APODACA MD Patient Instructions: Parkinson's Disease, Nupl-al-Cgag, Suicidal Feelings, How to Help Yourself Additional Instructions: Follow safety plan in place. Please contact Dr. Apodaca for questions regarding Parkinson's and Sinemet medication. Follow up with Dr. Solitario regarding this week's events and recent ER visits. Home health will contact you or your family on Friday. Attending Signature Attending Signature I have participated in the care of this patient and I have reviewed and agree with all pertinent clinical information above including history, exam, and recommendations. (SATNAM CROWLEY MD) Attending Signature I have participated in the care of this patient and I have reviewed and agree with all pertinent clinical information above including history, exam, and recommendations. (ANDRÉS FLORENTINO) Dragon Disclaimer This chart was dictated in whole or in part using Voice Recognition software in a busy, high-work load, and often noisy Emergency Department environment. It may contain unintended and wholly unrecognized errors or omissions. (SATNAM CROWLEY MD) Dragon Disclaimer This chart was dictated in whole or in part using Voice Recognition software in a busy, high-work load, and often noisy Emergency Department environment. It may contain unintended and wholly unrecognized errors or omissions. (ANDRÉS FLORENTINO) Dragon Disclaimer This chart was dictated in whole or in part using Voice Recognition software in a busy, high-work load, and often noisy Emergency Department environment. It may contain unintended and wholly unrecognized errors or omissions. (SATNAM CROWLEY MD) Dragon Disclaimer This chart was dictated in whole or in part using Voice Recognition software in a busy, high-work load, and often noisy Emergency Department environment. It may contain unintended and wholly unrecognized errors or omissions. (SATNAM CROWLEY MD) Dragon Disclaimer This chart was dictated in whole or in part using Voice Recognition software in a busy, high-work load, and often noisy Emergency Department environment. It may contain unintended and wholly unrecognized errors or omissions. (ANDRÉS FLORENTINO) ANDRÉS FLORENTINO Nov 15, 2021 15:01 SATNAM CROWLEY MD Nov 16, 2021 00:49 ELOINA MARINO MD Nov 16, 2021 10:41 SHELTON ALAN MD Nov 16, 2021 19:36 LOUIS SHELTON MD Nov 17, 2021 17:35
[2021-11-15] MEDS ORDERED: LORazepam 1 MG TABLET PO ONE (17:45)
[2021-11-15 18:16] LABS: BASO # 0.2 x10^3/uL (0.0-0.2); BASO % 2 % (0-3); EOS # 0.1 x10^3/uL (0.0-0.7); EOS % 1 % (0-3); HEMATOCRIT 42.7 % (36.0-47.0); HEMOGLOBIN 14.1 g/dL (12.0-15.5); LYMPH # 1.4 x10^3/uL (1.0-4.8); LYMPH % 17 % (24-48); MEAN CORPUSCULAR HEMOGLOBIN 28 pg (25-35); MEAN CORPUSCULAR HGB CONC 33 g/dL (31-37); MEAN CORPUSCULAR VOLUME 86 fL (79-100); MONO # 0.5 x10^3/uL (0.0-1.1); MONO % 6 % (0-9); NEUT # 6.3 x10^3uL (1.8-7.7); NEUT % 75 % (31-73); PLATELET COUNT 266 x10^3/uL (140-400); RED BLOOD COUNT 4.98 x10^6/uL (3.50-5.40); RED CELL DISTRIBUTION WIDTH 13.1 % (11.5-14.5); WHITE BLOOD COUNT 8.4 x10^3/uL (4.0-11.0)
[2021-11-15 18:20] LABS: CALCIUM 8.8 mg/dL (8.5-10.1); CREATININE 0.8 mg/dL (0.6-1.0); GFR 72.9; POTASSIUM 3.5 mmol/L (3.5-5.1)
[2021-11-15 18:26] LABS: ALBUMIN 3.5 g/dL (3.4-5.0); TOTAL BILIRUBIN 0.4 mg/dL (0.2-1.0)
[2021-11-15 18:37] LABS: BACTERIA,URINE FEW /HPF (0-FEW); CLARITY,URINE CLEAR; COLOR,URINE YELLOW; GLUCOSE,URINE NEG (NEG); NITRITE,URINE NEG (NEG); SQUAMOUS EPITHELIAL CELL,UR FEW /LPF; UROBILINOGEN,URINE 0.2 mg/dL (0.2 mg/dL)
[2021-11-15] MEDS ORDERED: IBUPROFEN 600 MG TABLET. PO ONE (19:45)
[2021-11-15] MEDS ORDERED: metroNIDAZOLE 500 MG TABLET PO ONE (21:30)
[2021-11-16] MEDS ORDERED: LORazepam 1 MG TABLET PO ONE (00:15)
[2021-11-16 08:00] VITALS: BP 117/59
[2021-11-16 10:58] VITALS: BP 119/67
[2021-11-16 13:42] VITALS: BP 114/70
[2021-11-16] MEDS ORDERED: IBUPROFEN 600 MG TABLET. PO ONE ×2 (13:45→19:30)
[2021-11-16 15:56] VITALS: BP 110/64
[2021-11-16] MEDS ORDERED: metroNIDAZOLE 500 MG TABLET PO ONE (19:30)
[2021-11-17] MEDS ORDERED: IBUPROFEN 600 MG TABLET. PO ONE (04:10)
--- NOTE | 2021-11-17 08:22 | PHYS DOC ---
Past History Past Medical History: Anxiety, Bipolar, Depression Additional Past Medical Histor: PARKINSONS Past Surgical History: Tonsillectomy, Tubal ligation Additional Past Surgical Histo: KIDNEY STENTS Smoking: Cigarettes Alcohol Use: None Adult General Chief Complaint Chief Complaint: SUICIDAL IDEATION HPI HPI HPI provided with assistance from WOOD Morris, who originally saw pt. HPI per her note as of 0700 on 11/17/21: "Patient is a 61 year old female with past medical history including Parkinson's, anxiety, depression, bipolar disorder who was seen in the emergency department yesterday presents with continued complaints of tremor. When she was seen in the department yesterday, she told the provider that she is out of her Sinemet, however she presents today with a full bottle. She saw Dr. Ramires, her neurologist, today, who informed her that he would not prescribe her any more medication. She was prescribed 42 tablets of Sinemet by the provider who saw her here in the emergency department yesterday. The pharmacy refused to fill her prescription when she presented today, prompting her to call EMS. She wants medication for her tremors to stop. Patient would not answer any other questions." Review of Systems Review of Systems See previous provider's note. Current Medications Current Medications Current Medications Medications (Trade) Dose Ordered Sig/Lory Start Time Stop Time Status Last Admin Dose Admin Ibuprofen (Motrin) 600 mg STK-MED ONCE 11/17/21 04:10 11/17/21 04:11 DC Lorazepam (Ativan) 2 mg 1X ONCE 11/16/21 00:15 11/16/21 00:16 DC 11/16/21 00:22 2 MG Metronidazole (Flagyl) 500 mg 1X ONCE 11/16/21 19:30 11/16/21 19:31 DC 11/16/21 20:09 500 MG Allergies Allergies Allergies Coded Allergies Type Severity Reaction Last Updated Verified No Known Drug Allergies 11/15/21 No Physical Exam Physical Exam See previous provider's note. Current Patient Data Vital Signs Vital Signs Date Time Temp Pulse Resp B/P (MAP) Pulse Ox O2 Delivery O2 Flow Rate FiO2 11/17/21 07:21 67 18 124/96 (105) 97 Room Air 11/16/21 20:06 97.7 Heart Score C/O Chest Pain: No Course & Med Decision Making Course & Med Decision Making Pertinent Labs and Imaging studies reviewed. (See chart for details) 0700: I assumed care of the pt from Dr. Mathur pending placement in a psychiatric facility. Reviewed pts presentation and all results and findings up to this point with Dr. Mathur. Pt was in stable condition upon my assumption of care. Dragon Disclaimer Dragon Disclaimer This electronic medical record was generated, in whole or in part, using a voice recognition dictation system. Departure Departure: Impression: Primary Impression: Suicidal ideation Additional Impressions: Hostile behavior Encounter for medication adjustment [facility] Condition: GUARDED Referrals: LAURA MUÑOZ MD (PCP) Patient Instructions: Suicidal Feelings, How to Help Yourself, Suicide, Helping Someone Who is Suicidal Problem Qualifiers LOUIS SHELTON MD Nov 17, 2021 08:22
[2021-11-17 18:00] VITALS: BP 142/77
== END 2021-11-17 18:10 | disposition home or self-care (01) ==
LOC: ER 14:30
DX: R45.851 Suicidal ideations (principal); F41.9 Anxiety disorder, unspecified; F31.9 Bipolar disorder, unspecified; F17.210 Nicotine dependence, cigarettes, uncomplicated; Z20.822 Contact with and (suspected) exposure to COVID-19
CPT/HCPCS: 80053; 81001; 85025; 87426; 99285; U0003